=== PATIENT | male | born 1980 | race Caucasian/White ===

== ENCOUNTER 2016-12-15 20:11 | Emergency (ER) | payer OTHER ==
[~2016-12-15] VITALS: Ht 195.6 cm; Wt 151.1 kg
[~2016-12-15 20:11] MED LIST: PRLSR20 PO; [UNRECOGNIZED DRUG - OTHER]
[2016-12-15 20:17] VITALS: TEMP 36.8; Ht 195.6 cm; Wt 151.1 kg
[2016-12-15] MEDS ORDERED: OMEP20TA PO (21:02)
[2016-12-15 22:05] LABS: BASO % 0.3 %; BASO ABS # 0.03 K/uL (0-0.2); COMPLETE YES; EOS % 0.3 %; HEMATOCRIT 44.5 % (42-52); IG% 0.1 %; LYMPH % 11.1 %; MEAN CELL VOLUME 91.2 fL (80-100); MEAN CORPUSCULAR HEMOGLOBIN 31.1 pg (25-34); MEAN CORPUSCULAR HGB CONC 34.2 g/dl (32-36); MEAN PLATELET VOLUME 10.7 fL (7.4-10.4); MONO % 5.9 %; NEUT % 82.3 %; PLATELET COUNT 169 K/uL (130-400); RED BLOOD COUNT 4.88 M/uL (4.7-6.1); WHITE BLOOD COUNT 11.73 K/uL (4.8-10.8)
[2016-12-15 22:14] LABS: BUN/CREATININE RATIO 14.4 (10-20); CREATININE 1.3 mg/dl (0.60-1.40); POTASSIUM 3.8 mmol/L (3.5-5.1)
[2016-12-15 22:18] LABS: CKMB/CK RATIO 1.3 (0-3.0)
--- NOTE | 2016-12-15 22:26 | DIAGNOSTIC IMAGING REPORT ---
CHEST ONE VIEW PORTABLE CLINICAL HISTORY: Chest and arm pain. Lightheadedness. COMPARISON STUDY: No previous studies for comparison. FINDINGS: This study is compromised by suboptimal penetration. Lung volumes are normal. Lungs are clear. There is no pneumothorax or pleural effusion. There is no evidence of pulmonary edema. There is borderline enlargement of the cardiac silhouette. IMPRESSION: 1. No acute findings. 2. Borderline enlargement of the cardiac silhouette. Electronically signed by: Jewel Shetty M.D. 12/15/2016 10:24 PM Dictated Date/Time: 12/15/2016 10:24 PM
[2016-12-16 00:39] VITALS: BP 155/91; PULSE 65; O2SAT 97
[2016-12-16] MEDS ORDERED: ASPIRIN 81 MG CHEW PO STA (00:39)
--- NOTE | 2016-12-16 03:11 | EMERGENCY ROOM VISIT NOTE ---
History Report prepared by Gerardo: Shivam Moreno Under the Supervision of: Dr. John Shaffer M.D. First contact with patient: 21:41 Chief Complaint: ARM PAIN Stated Complaint: ARM/SIDE PAIN,LIGHTHEADED, THIRTSY History of Present Illness The patient is a 36 year old male who presents to the Emergency Room with complaints of sudden left arm pain starting at around 1700 tonight. The patient states that he was leaving work earlier today when he started to get pain in his left upper arm and the left side of his chest. He additionally states that he feels warmth around his head, "butterflies in his stomach", heart racing, and light headedness. The patient states that stretching his arm makes it worse. He denies doing anything strenuous at [employer] earlier. The patient sates that he has never had anything like this before. He states that he has additionally had a cold recently. The patient states that he has a family history of heart disease. Pt denies LOC, headache, fevers, chills, diaphoresis, visual changes, neck pain, breathing difficulties, nausea, vomiting, abdominal pain, back pain, melena, hematochezia, urinary symptoms, numbness, weakness, lymphadenopathy, rash, or other complaints. Source of History: patient Onset: 1700 tonight Position: arm (left) Timing: other (sudden) Note: Associated symptoms: warmth, heart racing, and light headedness Review of Systems See HPI for pertinent positives and negatives. A total of ten systems were reviewed and were otherwise negative. Past Medical & Surgical Medical Problems: (1) Asthma (2) HTN (hypertension) Family History FH: HTN (hypertension) FH: diabetes mellitus FH: heart disease FH: kidney disease FH: lung disease Social History Smoking Status: Current Some Day Smoker Alcohol Use: occasionally Marital Status: single Occupation Status: employed Current/Historical Medications Scheduled Omeprazole (Omeprazole), 20 MG PO DAILY Allergies Coded Allergies: Penicillins (Verified Allergy, Unknown, CHILDHOOD ALLERGY, 12/15/16) Physical Exam Vital Signs Date Time Temp Pulse Resp B/P Pulse Ox O2 Delivery O2 Flow Rate FiO2 12/16/16 00:39 65 18 155/91 97 Room Air 12/15/16 21:58 Room Air 12/15/16 21:58 Room Air 12/15/16 21:40 68 12/15/16 21:39 83 18 185/107 96 Room Air 12/15/16 20:17 36.8 70 16 177/112 97 Room Air Physical Exam GENERAL: Awake, alert, well-appearing, in no distress HENT: Normocephalic, atraumatic. Oropharynx unremarkable. EYES: Normal conjunctiva. Sclera non-icteric. NECK: Supple. No nuchal rigidity. FROM. No JVD. RESPIRATORY: Clear to auscultation. CARDIAC: Regular rate, normal rhythm. Extremities warm and well perfused. Pulses equal. ABDOMEN: Soft, non-distended. No tenderness to palpation. No rebound or guarding. No masses. RECTAL: Deferred. MUSCULOSKELETAL: Chest examination reveals no tenderness. The back is symmetrical on inspection without obvious abnormality. There is no CVA tenderness to palpation. No joint edema. LOWER EXTREMITIES: Calves are equal size bilaterally and non-tender. No edema. No discoloration. NEURO: Normal sensorium. No sensory or motor deficits noted. SKIN: No rash or jaundice noted. Medical Decision & Procedures ER Provider Diagnostic Interpretation: X-ray: Per my interpretation, radiologist review. CHEST ONE VIEW PORTABLE CLINICAL HISTORY: Chest and arm pain. Lightheadedness. COMPARISON STUDY: No previous studies for comparison. FINDINGS: This study is compromised by suboptimal penetration. Lung volumes are normal. Lungs are clear. There is no pneumothorax or pleural effusion. There is no evidence of pulmonary edema. There is borderline enlargement of the cardiac silhouette. IMPRESSION: 1. No acute findings. 2. Borderline enlargement of the cardiac silhouette. Electronically signed by: Jewel Shetty M.D. 12/15/2016 10:24 PM Dictated Date/Time: 12/15/2016 10:24 PM Laboratory Results 12/15/16 21:33 Red Blood Count 4.88, Mean Corpuscular Volume 91.2, Mean Corpuscular Hemoglobin 31.1, Mean Corpuscular Hemoglobin Concent 34.2, Mean Platelet Volume 10.7, Neutrophils (%) (Auto) 82.3, Lymphocytes (%) (Auto) 11.1, Monocytes (%) (Auto) 5.9, Eosinophils (%) (Auto) 0.3, Basophils (%) (Auto) 0.3, Neutrophils # (Auto) 9.67, Lymphocytes # (Auto) 1.30, Monocytes # (Auto) 0.69, Eosinophils # (Auto) 0.03, Basophils # (Auto) 0.03 12/15/16 21:33 Test 12/15/16 21:33 12/15/16 23:53 White Blood Count 11.73 K/uL (4.8-10.8) Red Blood Count 4.88 M/uL (4.7-6.1) Hemoglobin 15.2 g/dL (14.0-18.0) Hematocrit 44.5 % (42-52) Mean Corpuscular Volume 91.2 fL (80-100) Mean Corpuscular Hemoglobin 31.1 pg (25-34) Mean Corpuscular Hemoglobin Concent 34.2 g/dl (32-36) Platelet Count 169 K/uL (130-400) Mean Platelet Volume 10.7 fL (7.4-10.4) Neutrophils (%) (Auto) 82.3 % Lymphocytes (%) (Auto) 11.1 % Monocytes (%) (Auto) 5.9 % Eosinophils (%) (Auto) 0.3 % Basophils (%) (Auto) 0.3 % Neutrophils # (Auto) 9.67 K/uL (1.4-6.5) Lymphocytes # (Auto) 1.30 K/uL (1.2-3.4) Monocytes # (Auto) 0.69 K/uL (0.11-0.59) Eosinophils # (Auto) 0.03 K/uL (0-0.5) Basophils # (Auto) 0.03 K/uL (0-0.2) RDW Standard Deviation 43.2 fL (36.4-46.3) RDW Coefficient of Variation 12.9 % (11.5-14.5) Immature Granulocyte % (Auto) 0.1 % Immature Granulocyte # (Auto) 0.01 K/uL (0.00-0.02) Anion Gap 10.0 mmol/L (3-11) Est Creatinine Clear Calc Drug Dose 126.6 ml/min Estimated GFR () 81.4 Estimated GFR (Non- 70.2 BUN/Creatinine Ratio 14.4 (10-20) Calcium Level 9.0 mg/dl (8.5-10.1) Total Bilirubin 0.6 mg/dl (0.2-1) Direct Bilirubin 0.1 mg/dl (0-0.2) Aspartate Amino Transf (AST/SGOT) 15 U/L (15-37) Alanine Aminotransferase (ALT/SGPT) 33 U/L (12-78) Alkaline Phosphatase 53 U/L (45-117) Total Creatine Kinase 113 U/L (39-308) Creatine Kinase MB 1.5 ng/ml (0.5-3.6) Creatine Kinase MB Ratio 1.3 (0-3.0) Total Protein 7.0 gm/dl (6.4-8.2) Albumin 3.9 gm/dl (3.4-5.0) Lipase 152 U/L (73-393) Bedside Troponin I 0.000 ng/ml (0-0.045) Laboratory results reviewed by me Medications Administered Medications (Trade) Dose Ordered Sig/Kassie Route Start Time Stop Time Status Last Admin Dose Admin Aspirin (Aspirin Chew) 81 mg NOW STAT PO 12/16/16 00:39 12/16/16 00:40 DC 12/16/16 00:58 81 MG ECG Indication: other (left arm pain) Rate (beats per minute): 64 Rhythm: normal sinus Findings: no acute ischemic change, no ectopy Change: Follow up EKG showed: Sinus with sinus arrhythmia at 61 bpm. No ischemia or ectopy ED Course 2148: The patient was evaluated in room C6. A complete history and physical exam was performed. 2338: I reevaluated the patient, and he was resting 0027: I reassessed the patient, and he was feeling better. Discussed results and discharge instructions: He verbalized understanding and agreement. The patient is ready for discharge. 0039: Aspirin 81mg PO Medical Decision Triage Nursing notes reviewed. The patient's presentation and history were concerning for arm pain. Etiologies such as musculoskeletal, cardiac ischemia, aortic dissection, pulmonary embolism, pneumonia, pneumothorax, infections, gastrointestinal, as well as others were entertained. The patient was evaluated. Clinically he was doing well. His ECG was negative. Chest x-ray was negative. Blood work was obtained. The patient had a slight elevation of his blood cell count, just over normal. He had no sign of infection on physical examination. History pointed towards no sign of infection either. The patient had unremarkable CBC and chemistry panel. Cardiac markers obtained. These are negative. Troponin was repeated, and this was 0. Repeat ECG was negative as well. Patient states he felt like his arm was strained. He does have hypertension and this has been long-standing. He has not followed up on this. I discussed treatment options with the patient. He did not want to stay in the hospital. The patient wanted to follow-up as an outpatient. Given his symptoms this would not be unreasonable given his negative ECG 2 and troponin 2. The patient was referred to cardiology and will call them tomorrow. If he has any difficulty obtaining the follow-up for stress test he will call back to the Emergency Room. He'll rest and not overexert himself. The patient was also instructed to follow up with his primary office as blood pressure needs management.I gave my usual and customary discussion regarding this issue. By the evaluation outlined above other emergent etiologies such as those listed in the differential, as well as others, were deemed relatively unlikely. The patient and were informed about the findings as listed above. All questions were answered and they were pleased with the treatment. Return instructions were outlined and the patient was discharged in stable condition. The patient was referred to cardiology and his PCP for follow-up for a recheck of the current condition. The chart was completed utilizing [employer] Speech voice recognition software. Grammatical errors, random word insertions, pronoun errors, and incomplete sentences are an occasional consequence of this system due to software limitations, ambient noise, and hardware issues. Any formal questions or concerns about the content, text, or information contained within the body of this dictation should be directly addressed to the physician for clarification. Impression Primary Impression: Arm pain, left Scribe Attestation The scribe's documentation has been prepared under my direction and personally reviewed by me in its entirety. I confirm that the note above accurately reflects all work, treatment, procedures, and medical decision making performed by me. Departure Information Dispostion Home / Self-Care Referrals No Doctor, Assigned (PCP) Forms HOME CARE DOCUMENTATION FORM, IMPORTANT VISIT INFORMATION Patient Instructions My [facility] Additional Instructions Take a baby aspirin daily until directed otherwise by primary doctor or cardiology. Acetaminophen(Tylenol) may be used for fever or pain. Use 1000mg every six hours as needed. Avoid using more than 4000mg in a 24 hour period. Rest and drink plenty of fluids as tolerated. Continue current medications. Avoid strenuous activities. Return to the ER immediately for worsening or persistent chest pain, abdominal pain, vomiting, fevers, chest pains, difficulty breathing, worsening of your condition, or as needed. Follow-up with cardiology tomorrow to schedule a stress test. Number is listed below under Dr. Reid. If the clinic cannot accommodate you call back to the Emergency Room at [phone] for case management assistance. Follow-up with your primary clinic for blood pressure management.
== END 2016-12-16 01:02 | disposition home or self-care (01) ==
LOC: C.EDB 20:12 → C.EDC 12-16 01:02
DX: M79.602 Pain in left arm (principal); J45.909 Unspecified asthma, uncomplicated; I10 Essential (primary) hypertension; F17.210 Nicotine dependence, cigarettes, uncomplicated; Z82.49 Family history of ischemic heart disease and other diseases of the circulatory system; Z83.6 Family history of other diseases of the respiratory system; Z79.899 Other long term (current) drug therapy